=== PATIENT | male | born 1995 | race Hispanic/Latino ===

== ENCOUNTER 2017-12-30 12:33 | Emergency (ER) | payer BC ==
[2017-12-30 12:45] VITALS: RESP 16; O2SAT 100
--- NOTE | 2017-12-30 13:02 | ED PDOC ---
HPI: General Adult Time Seen by Provider: 12/30/17 13:01 Chief Complaint (Nursing): Male Genitourinary Chief Complaint (Provider): left groin pain/left testicular pain History Per: Patient History/Exam Limitations: no limitations Onset/Duration Of Symptoms: Days Current Symptoms Are (Timing): Still Present Severity: Moderate Pain Scale Rating Of: 5 Location: left testicle/left groin Quality: cramp/sharp Similar Symptoms Previously: none Recent Trauma: no Additional Complaint(s): pt p/w + few days onset of progressively worsening left testicular cramps, stating symptoms ~ started 3-4 days ago; pt states self testicular exam reveals worsening left epidimidal swelling/bogginess with slight tenderness, no skin discoloration, also noted pain radiating up to left groin over the last 1-2 days ; pt states at most pain is 5/10; pt states + nausea, no vomiting, no fever/ chills/sweats, no cp/sob/palpitations, no abd pain, no n/v, no numbness/tingling , no gross bleeding, no fall/trauma/sick contact, 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 ED for further eval pt's without other complaints pt denied penile discharge pt denied penile bleeding pt sexually active, + protection, + single partner PCP: none Past Medical History Reviewed: Historical Data, Nursing Documentation, Vital Signs Vital Signs: Last Vital Signs Temp 97.7 F 12/30/17 12:43 Pulse 80 12/30/17 12:43 Resp 16 12/30/17 12:43 BP 126/73 12/30/17 12:43 Pulse Ox 100 12/30/17 13:01 - Surgical History Surgical History: No Surg Hx - Family History Family History: States: No Known Family Hx - Living Arrangements Living Arrangements: Alone - Social History Current smoker - smoking cessation education provided: No Ex-Smoker (has not smoked in the last 12 months): No Alcohol: Occasional Drugs: Denies - Home Medications Home Medications: Ambulatory Orders Medication Instructions Recorded Ibuprofen [Motrin] 400 mg PO QID PRN #30 tab 12/30/17 - Allergies Allergies/Adverse Reactions: Allergies Allergy/AdvReac Type Severity Reaction Status Date / Time No Known Allergies Allergy Verified 12/30/17 12:43 Review of Systems ROS Statement: Except As Marked, All Systems Reviewed And Found Negative Constitutional: Negative for: Fever, Weakness Eyes: Negative for: Pain ENT: Negative for: Ear Pain Cardiovascular: Negative for: Chest Pain Respiratory: Negative for: Cough, Shortness of Breath, SOB with Exertion Gastrointestinal: Negative for: Nausea, Vomiting, Abdominal Pain Genitourinary Male: Positive for: Scrotal Pain, Other (left groin pain) Musculoskeletal: Negative for: Neck Pain, Back Pain Skin: Negative for: Rash Neurological: Negative for: Weakness Physical Exam - Reviewed Nursing Documentation Reviewed: Yes Vital Signs Reviewed: Yes (WNL) - Physical Exam Appears: Positive for: Well (alert/awake, GCS + 15, oriented x 3, NAD, mildly uncomfortable, resting in bed; cooperative), Non-toxic, No Acute Distress, Uncomfortable Head Exam: Positive for: ATRAUMATIC, NORMAL INSPECTION, NORMOCEPHALIC Skin: Positive for: Normal Color (cap refill < 1sec, no ulcerations, no petechiae, no rashes/lesions, no pallor), Warm, Dry. Negative for: Pallor Eye Exam: Positive for: Normal appearance, EOMI, PERRL, Other (no nystagmus, no photophobia) ENT: Positive for: Normal ENT Inspection Neck: Positive for: Normal, Supple, Trachea Midline Cardiovascular/Chest: Positive for: Regular Rate, Rhythm, Chest Non Tender, Other (+S1, +S2) Respiratory: Positive for: Normal Breath Sounds Gastrointestinal/Abdominal: Positive for: Normal Exam, Bowel Sounds, Soft Male Genital Exam: Positive for: normal genitalia, no hernia, other ( cremasteric reflexes intact b/l, b/l descended testis, circumcised male, no focal tenderness on exam; slight bogginess to left epidimidis, no gross tenderness noted, no fluctuance, no skin discoloration noted). Negative for: epididymal tenderness, erythema, hernia mass, lesions, scrotum tenderness (R), scrotum tenderness (L) Back: Positive for: Normal Inspection. Negative for: L CVA Tenderness, R CVA Tenderness, Decreased ROM Extremity: Positive for: Normal ROM, Other (+ ambulatory, neurovasc intact b/l, strength 5/5 grossly intact in all limbs) Neurologic/Psych: Positive for: Alert, bark fitter II-XII, Oriented - ECG O2 Sat by Pulse Oximetry: 100 Pulse Ox Interpretation: Normal - Radiology X-Ray: Read By Radiologist - Progress ED Course And Treament: HISTORY: r/o left test torsion vs epididymitis TECHNIQUE: Realtime sonography through the scrotum with color and doppler flow. COMPARISON: None Available. FINDINGS: RIGHT TESTICLE: Measures 5.1 x 2.4 x 3.2 cm. Normal echotexture and flow. RIGHT EPIDIDYMIS: Epididymal head measures 0.9 x 0.6 x 0.7 cm. Grossly unremarkable appearance with normal flow. LEFT TESTICLE: Measures 4.7 x 2.0 x 3.1 cm. Normal echotexture and flow. LEFT EPIDIDYMIS: Epididymal head measures 1.1 x 0.8 x 1.2 cm. Grossly unremarkable appearance with normal flow. HYDROCELE: None. VARICOCELE: None. OTHER FINDINGS: None. IMPRESSION: No evidence for testicular mass, torsion or epididymo-orchitis pt is doing well pt is not in any distress pt is made aware of his medical results pt is encouraged outpt f/u pt will be discharged home Re-evaluation Time: 17:04 Condition: Improved Medical Decision Making Medical Decision Making: Impression: left test pain, r/o torsion i have consider all the differential diagnosis regarding pt's chief medical complaints/clinical findings, including but are not limited to: r/o torsion; left testicular pain A/P: left test pain - ua - U/S - supportive care - observe Disposition - Clinical Impression Clinical Impression: Left testicular pain - Patient ED Disposition Is Patient to be Admitted: No Counseled Patient/Family Regarding: Studies Performed, Diagnosis, Need For Followup, Rx Given - Disposition Referrals: Jorge Alberto Miguel MD [Staff Provider] - Disposition: Routine/Home Disposition Time: 17:12 Condition: STABLE Additional Instructions: Make sure to see your doctor in 1-2 days DRINK PLENTY OF FLUIDS take your medications as prescribed RETURN TO ED IF worse pain, testicular swelling, cant breath, persistent vomiting, high fever >101-102 for hours, altered behavior, slurr speech, facial changes, focal weakness (arm/leg or both), unable to urinate, heavy/persistent bleeding, passing out, chest pain, or other medical emergencies Prescriptions: Ibuprofen [Motrin] 400 mg PO QID PRN #30 tab PRN Reason: Pain, Mild (1-3) Instructions: How to Perform a Testicular Self-Exam, Groin Strain (DC) Forms: [facility] (Greenlandic) Print Language: AMERICAN
[2017-12-30 13:56] LABS: URINE BILIRUBIN NEGATIVE (NEGATIVE); URINE BLOOD NEGATIVE (NEGATIVE); URINE CLARITY CLEAR (Clear); URINE COLOR YELLOW (YELLOW); URINE GLUCOSE (UA) NEG (Normal); URINE LEUKOCYTE ESTERASE NEG Leu/uL (Negative); URINE PROTEIN NEGATIVE (NEGATIVE); URINE UROBILINOGEN 0.2-1.0 mg/dL (0.2-1.0)
--- NOTE | 2017-12-30 15:56 | US ---
HISTORY: r/o left test torsion vs epididymitis TECHNIQUE: Realtime sonography through the scrotum with color and doppler flow. COMPARISON: None Available. FINDINGS: RIGHT TESTICLE: Measures 5.1 x 2.4 x 3.2 cm. Normal echotexture and flow. RIGHT EPIDIDYMIS: Epididymal head measures 0.9 x 0.6 x 0.7 cm. Grossly unremarkable appearance with normal flow. LEFT TESTICLE: Measures 4.7 x 2.0 x 3.1 cm. Normal echotexture and flow. LEFT EPIDIDYMIS: Epididymal head measures 1.1 x 0.8 x 1.2 cm. Grossly unremarkable appearance with normal flow. HYDROCELE: None. VARICOCELE: None. OTHER FINDINGS: None. IMPRESSION: No evidence for testicular mass, torsion or epididymo-orchitis
[2017-12-30 17:22] VITALS: BP 128/77; PULSE 78; TEMP 97.8
== END 2017-12-30 17:20 | disposition home or self-care (01) ==
LOC: H.ER 12:33
DX: N50.812 Left testicular pain (principal)